=== PATIENT | female | born 1975 | race Caucasian/White ===

== ENCOUNTER 2016-03-15 06:34 | Inpatient (IN) | payer SELFPAY ==
--- NOTE | 2016-03-14 11:38 | Anesthesia Consultation ---
Anesthesia Consult and Med Hx Date of service: 03/18/16 - Airway Anesthetic Teeth Evaluation: Good ROM Head & Neck: Adequate Mental/Hyoid Distance: Adequate Mallampati Class: Class II Intubation Access Assessment: Probably Good - Pulmonary Exam CTA: Yes - Cardiac Exam Cardiac Exam: RRR - Pre-Operative Health Status ASA Pre-Surgery Classification: ASA1 Proposed Anesthetic Plan: General - Central Nervous System Hx Psychiatric Problems: No - Gastrointestinal Hx Gastroesophageal Reflux Disease: No - Other Systems Hx Alcohol Use: No Hx Cancer: No - Additional Comments Anesthesia Medical History Comments: healthy, H/O gestational diabetes
[2016-03-14 11:41] LABS: Hematocrit 40.7 % (30.3-42.9); Hemoglobin 13.8 gm/dl (10.1-14.3); Mean Corpuscular HGB Conc 34 % (30-34); Mean Corpuscular Hemoglobin 30 pg (28-32); Mean Corpuscular Volume 87 fl (79-97); Platelet Count 204 K/mm3 (140-440); Red Blood Count 4.69 M/mm3 (3.65-5.03); Red Cell Distribution Width 13.6 % (13.2-15.2); White Blood Count 4.4 K/mm3 (4.5-11.0)
[~2016-03-15 06:34] MED LIST: LACTATED RINGERS 1,000 ML IV SCH; PEPCID PO NR; VERSED IV NR
[2016-03-15] MEDS ORDERED: PEPCID PO NR (08:00)
--- NOTE | 2016-03-15 09:02 | Admit Criteria Form ---
Admission Criteria Documentation: AMBULATORY SURGERY EXCEPTION CRITERIA Ambulatory Surgery Exception Criteria ( Place 'X' for any and all applicable criteria): Surgery or procedure performed on ambulatory basis may require inpatient stay for[A] ANY ONE of the following(1)(2)(3)(4)(5)(6)(7)(8)(9): [X] I. A preoperative situation, condition, or finding that warrants inpatient stay as indicated by ANY ONE of the following: [] a) Inpatient care needed because of severity of a disease or condition rather than the surgery (eg, severe cardiac or respiratory disease, severe infection) (15) (16 ) (17) (18) [] b) Emergent procedure (eg, angioplasty for acute ischemia)(19) [X] c) Complex surgical approach or situation as indicated by ANY ONE of the following(3): [X] i) Open approach needed instead of usual endoscopic, transcatheter, or other less invasive procedure [] ii) Difficult approach because of previous operation [] iii) Airway monitoring required after open neck procedures(20)(21) [] iv) Large mass requiring unusually extensive dissection [] v) Additional complicating feature requiring inpatient care (eg, drain management)(22(23): [] d) Major surgery in a pt with high anesthetic risk as indicated by ANY ONE of the following (2)(3)(5)(7)(8): [] i) ASA risk class III or higher (severe systemic disease impairing function) [D] [] ii) Advanced age (eg, older than 85 years)(14)(24) [] iii) Symptomatic heart failure(25) [] iv) Symptomatic asthma or COPD(8)(21) [] v) Morbid obesity with hemodynamic or respiratory problems(20)( 21)(26)(27) [] vi) Obstructive sleep apnea(20)(21) [] vii) Former premature infants who are younger than 60 weeks [] viii) High risk for severe postoperative abnormalities (eg, severe postoperative hypocalcemia after parathyroidectomy for severe hyperparathyroidism)(27)( 28) [] ix) Unstable angina(25) [] e) Drug-related risk requiring inpatient stay as indicated by ANY ONE of the following(5)(10)(14)(32)(33) [] i) Procedure requires discontinuing drugs or other therapy (eg , antiarrhythmic medication, antiseizure medication), which necessitates inpatient observation or treatment.(18)(31) [] ii) Major surgery and high risk drug use as indicated by ANY ONE of the following: [] 1) Active abuse of cocaine or similar drug [] 2) Monoamine oxidase inhibitor use [] 3) Other drug identified as posing risk [] f) Inadequate outpatient care situation as indicated by ANY ONE of the following(5)(10)(14)(32)(33) [] i) Patient lives remote from medical facility and procedure has urgent complication potential, and temporary nearby residence cannot be arranged [] ii) Patient will have postprocedure incapacitation and inadequate assistance at home, or alternative level of care cannot be arranged. [] iii) Patient will have long general anesthesia or procedure side effect resolution time, and competent person to stay with patient on first postoperative night at home or alternative level of care cannot be arranged. []iv) Other inadequate outpatient situation that cannot be handled by other means [] II. A perioperative event, condition, or finding that warrants inpatient stay as indicated by ANY ONE of the following (1)(2)(3): [] a) Inadequate physiologic recovery: cardiovascular, respiratory, or hemodynamic status not normal or near preoperative baseline(18) [] b) Hemodynamic instability [] c) Patient not alert with near normal or baseline mental status [] d) Temperature not normal or as expected and not appropriate for outpatient treatment of condition [] e) Ambulatory or appropriate activity level status not yet achieved post procedure [E](34)(35)(36) [] f) Operative site not appropriate (eg, unexpected or excessive drainage or bleeding) [] g) Postoperative effects not resolved or adequately managed (eg, significant pain or vomiting not appropriate for outpatient or next level of care)(10)(12) [] h) Complicating features requiring inpatient care as indicated by ANY ONE of the following(37): [] i) Severe complications of procedure (eg, bowel injury, airway compromise, vascular injury,severe hemorrhage) [] ii) Extensive (eg, dissection far beyond usual scope of procedure ) or prolonged (eg, 120 minutes beyond usual) surgery needed requiring inpatient postoperative care [] iii) Conversion to an open or complex procedure that requires inpatient care (eg, open vs laparoscopic cholecystectomy, abdominal vs vaginal hysterectomy)(38) [] iv) Comorbid condition or test result identified during or post procedure that requires inpatient care (7) [] v) Malignant hyperthermia(30) [] vi) Other complicating feature requiring inpatient care(22)(23) Inpatient stay may be needed until ALL of the following are present (1)(2)(3)(4) (5)(6)(10)(14)(33)(40): []a) Physiologic recovery: cardiovascular, respiratory, and hemodynamic status normal or near preoperative baseline []b) Hemodynamic stability []c) Patient alert, with near normal or baseline mental status []d) Temperature appropriate: patient afebrile or temperature appropriate for outpt treatment of condition []e) Activity level appropriate: ambulatory or appropriate activity level post procedure []f) Operative site appropriate as indicated by ALL of the following: []i) Site dry or with expected drainage []ii) Any blood noted is as expected for procedure. []g) Postoperative effects resolved or managed as indicated by ALL of the following: []i) Pain management appropriate for outpatient (or next level of) care(10) []ii) Minimal nausea and vomiting: if present, successfully treated with oral medication(12) []iii) Headache, dizziness, or drowsiness (if present) are mild. []h) Voiding status acceptable as indicated by ANY ONE of the following: []i) Voiding spontaneously []ii) No voiding but instructions given for follow-up in 6 to 8 hours []iii) Urinary catheter in place, and instructions given for follow-up []i) Complicating features requiring inpatient care manageable at a lower level of care(37) []j) Comorbid conditions manageable at a lower level of care(37) The original [employer] content created by [employer] has been revised. The portions of the content which have been revised are identified through the use of italic text or in bold, and [facility] [employer] has neither reviewed nor approved the modified material. All other unmodified content is copyright [employer]. Please see references footnoted in the original [employer] edition 2016 Admission Criteria Met: Yes
--- NOTE | 2016-03-15 11:41 | Short Stay Summary ---
Short Stay Documentation Date of service: 03/15/16 Narrative H&P: C/O: Abnormal uterine bleeding/HMB-L 40-year-old presents with the above complaints and issues. He has had heavy and painful cycles and her section on 07/03/2015. He had a transvaginal ultrasound which showed a 20 week size fibroid uterus. Desires hysterectomy She has normal Pap smears and a negative EMB Gynhx:As above Regular Pap smears Medhx:None (Hx of GDM but no f/u 3 hr GTT) Sughx: C-S # 1 in 2015 All:NKDA On exam, she has an obvious mildly tender, ~ 20 weeks' size uterus which is mobile A: AUB/HMB-L P: -Discussed risks of surgery in detail, we reviewed risk to the rounding organs and structures especially the urinary system. Her questions were answered and she signed consent. -Proceed to the OR for total abdominal hysterectomy with bilateral salpingectomy once available - History Past Medical History: No medical history Past Surgical History: Social history: , full code, no smoking, no alcohol abuse, no prescription drug abuse, no IV drug use - Allergies and Medications Current Medications: Allergies No Known Allergies Allergy (Unverified 03/11/16 08:21) Home Medications Medication Instructions Recorded Confirmed Last Taken Type No Known Home Medications [No 03/11/16 03/11/16 Unknown History Reported Home Medications] Active Medications Famotidine (Pepcid) 20 mg PO PREOP NR Stop: 03/15/16 23:59 Lactated Ringer's (Lactated Ringers) 1,000 mls @ 100 mls/hr IV DIRECT EVANGELISTA Midazolam HCl (Versed) 2 mg IV PREOP NR Stop: 03/15/16 23:59 - Physical exam General appearance: no acute distress, well-nourished, obese HEENT: Atraumatic Lungs: Clear to auscultation Heart: Regular rate, Normal S1, Normal S2 Gastrointestinal: normal, no tenderness, no distended, masses (Fibroid uterus), no guarding, no organomegaly, obese Female Genitourinary: normal Extremities: no ischemia Neurological: Normal speech
[2016-03-15] MEDS ORDERED: NACL 0.9% 500 ML 500 ML IV ONE (11:42)
[2016-03-15] MEDS ORDERED: NACL BACTERIOSTATIC INFILTRATI ONE (11:43)
[2016-03-15] MEDS ORDERED: ANCEF/STERILE WATER 2 GM/20 ML 20 ML IV SCH (12:00)
[2016-03-15] MEDS: VERSED IV NR ×2 (12:10→13:22)
[2016-03-15 12:39] LABS: Anion Gap 18 mmol/L; Blood Urea Nitrogen 9 mg/dL (7-17); Calcium 8.8 mg/dL (8.4-10.2); Carbon Dioxide 24 mmol/L (22-30); Chloride 104.1 mmol/L (98-107); Glucose 89 mg/dL (65-100); Sodium 142 mmol/L (137-145)
[2016-03-15 12:40] LABS: Potassium 4.5 mmol/L (3.6-5.0)
[2016-03-15] MEDS ORDERED: DIPRIVAN 10 MG/ML IV ONE (13:23)
[2016-03-15] MEDS ORDERED: DILAUDID ONE ×2 (13:24→15:54)
[2016-03-15] MEDS ORDERED: ZEMURON IV ONE (13:25)
[2016-03-15] MEDS ORDERED: ROBINUL ONE ×2 (13:28→14:50)
[2016-03-15] MEDS ORDERED: XYLOCAINE MPF 2% ONE (13:28)
[2016-03-15] MEDS ORDERED: BLOXIVERZ ONE (13:29)
[2016-03-15] MEDS ORDERED: DECADRON ONE (13:30)
[2016-03-15] MEDS ORDERED: ZOFRAN ONE (13:30)
[2016-03-15] MEDS ORDERED: NACL 0.9% IR ONE (14:15)
[2016-03-15] MEDS ORDERED: ACD-A IV ONE (14:15)
[2016-03-15] MEDS ORDERED: LACTATED RINGERS 1,000 ML ONE (14:17)
[2016-03-15] MEDS ORDERED: ANCEF ONE (14:20)
[2016-03-15] MEDS ORDERED: NACL 0.9% 1000 ML 1,000 ML ONE (14:56)
[2016-03-15] MEDS ORDERED: ZOFRAN IV PRN (15:47)
[2016-03-15] MEDS ORDERED: TYLENOL PO PRN (15:47)
[2016-03-15] MEDS ORDERED: NARCAN 0.4 MG/1 ML IV PRN (15:47)
[2016-03-15] MEDS ORDERED: BENADRYL IV PRN (15:47)
[2016-03-15] MEDS ORDERED: PHENERGAN PR PRN (15:47)
--- NOTE | 2016-03-15 15:47 | Operative Report ---
Operative Report Operative Report: DATE: 03/15/2016 PREOPERATIVE DIAGNOSIS: Abnormal uterine bleeding/heavy menstrual bleeding- fibroids, obesity POSTOP DIAGNOSIS: Same NAME OF PROCEDURE: Total abdominal hysterectomy with bilateral salpingectomy SURGEON: NATE RANDLE MD MANAGEMENT SUPERVISOR: DONOVAN BALTAZAR ANESTHESIA: General Endotracheal EBL: 250 mL (125 ml returned by cell saver) PATHOLOGY SPECIMEN: Uterus cervix and tubes URINE OUTPUT: 300 mL FINDINGS: Bulky ~ 20 week size uterus DESCRIPTION OF PROCEDURE: She was taken to the operating room where she was prepped and draped in a sterile fashion, she was placed in the dorsal supine position. Pfannenstiel incision was performed through her prior incisional scar which was carried through to underlying rectus fascia which was on the midline. The fascial incision was extended laterally with use of Keita scissors , the anterior leaf was then grasped with Kochers forceps elevated dissected sharply and bluntly off the underlying rectus in a similar fashion inferior leaf was grasped elevated dissected sharply and bluntly off the underlying rectus. The rectus was in the midline, good visualization of bladder was noted. O'Richardson retractor was placed in the patient's abdomen and the bowel was packed away. Uterus was mobile and was elevated out of the pelvis, using handheld LigaSure, the utero-ovarian broad and cardinal ligaments were sequentially grasped and cauterized and transected both sides. The fundus of the uterus was then amputated off the cervix using Heather scissors. Using straight Faisal's, we serially grasped the cardinal ligaments and then the uterosacral ligaments were then transected and suture ligated. Curved Heaneys were then used to clamp around the cervix and then using Heather scissors the cervix was amputated and delivered from the operating field. Interrupted figure of 8 stitches were used to close the vaginal cuff. 3-0 Vicryl on a running stitch was then used to obtain hemostasis in the vaginal cuff. Irrigation was then used to cut the gutters of all clots and debris, no bleeding noted. Tercel hemostatic agent was then applied to the hysterotomy incision as a means to prevent future bleeding, Interceed was then applied into the pelvic cavity as a means to prevent future adhesions. Peritoneal edges were grasped with hemostats and Margarita's and elevated. The peritoneal layer was then closed in a running fashion with 3-0 Vicryl and the rectus was reapproximated with a single [id number] stitch. The fascia was closed in a running fashion with 0 Vicryl and tied in the opposite side. The subcutaneous layer was irrigated and then reapproximated with interrupted [id number] stitches. The skin was closed in a subcuticular manner with 4-0 Vicryl. She tolerated the procedure well lap and instrument counts were correct 2 she did receive 3 g of Ancef prior to incision she is transferred to PACU in stable condition thank you.
[2016-03-15] MEDS ORDERED: D5LR 1,000 ML IV SCH (16:00)
[2016-03-15] MEDS ORDERED: MORPHINE PCA 30MG/30ML IV SCH (16:00)
[2016-03-15] MEDS ORDERED: NACL 0.9% 1000 ML 1,000 ML IV SCH (16:00)
[2016-03-15] MEDS ORDERED: TORADOL IV PRN ×2 (16:25→17:00)
[2016-03-15] MEDS: ZOFRAN IV PRN (19:13)
--- NOTE | 2016-03-15 19:30 | Post Anesthesia Evaluation ---
- Post Anesthesia Evaluation Patient Participated: Yes Airway Patent: Yes Stable Respiratory Function: Yes Nausea/Vomiting: No Temp > 96.8F: Yes Pain Manageable: Yes Adequeate Hydration: Yes Anesthesia Complications: No Block Receding Appropriately: Not Applicable Patient on Ventilator: No
[2016-03-15] MEDS: COLACE PO SCH (21:00)
[2016-03-15] MEDS ORDERED: TORADOL IV ONE (21:51)
[2016-03-15] MEDS: NORMODYNE PO SCH (22:02)
[2016-03-15] MEDS: MYLICON PO PRN (22:02)
[2016-03-16 06:08] LABS: Hematocrit 38.5 % (30.3-42.9); Hemoglobin 13.3 gm/dl (10.1-14.3)
[2016-03-16] MEDS: PERCOCET 5/325 PO PRN ×3 (06:30→18:09)
--- NOTE | 2016-03-16 06:44 | Progress Note ---
Assessment and Plan POD # 1 s/p ZAYRA -Doing well P: -Remove dressing tomorrow -Continue routine Post-op care -Anticipate D/C in 24-48 hrs - Patient Problems (1) S/P ZAYRA (total abdominal hysterectomy) Current Visit: Yes Status: Acute Subjective - Subjective Date of service: 03/16/16 Principal diagnosis: POD # 1 s/p ZAYRA Interval history: Patient seen and examined, stable doing well. Still has Sammie-incisional pain, no fever or chills, no CVA tenderness adequate Bowel bladder function Patient reports: appetite normal, voiding normally, no dizzy ambulation Objective - Vital Signs Latest vital signs: Vital Signs Temp Pulse Pulse Resp BP BP Pulse Ox 03/16/16 06:01 22 03/16/16 04:15 98.6 F 72 22 117/63 03/16/16 03:40 18 03/16/16 01:57 18 03/15/16 23:45 15 03/15/16 23:10 98.6 F 101 H 20 141/83 03/15/16 22:02 80 148/86 03/15/16 20:00 98.6 F 67 22 154/80 03/15/16 19:05 18 03/15/16 18:10 98.0 F 90 16 151/91 03/15/16 17:50 98.0 F 90 16 151/91 03/15/16 17:32 98.2 F 71 13 146/79 100 03/15/16 17:15 74 17 154/86 100 03/15/16 17:00 87 12 162/86 100 03/15/16 16:50 22 03/15/16 16:38 98.4 F 63 18 166/80 100 03/15/16 16:23 71 15 162/81 100 03/15/16 16:16 12 03/15/16 16:06 67 14 132/42 100 03/15/16 16:01 65 15 163/79 100 03/15/16 15:55 61 13 150/76 100 03/15/16 15:53 98.7 F 69 16 157/94 100 03/15/16 12:27 66 F L 66 16 115/42 97 03/15/16 11:25 98.7 F 66 16 115/42 97 Intake and Output 03/15/16 03/15/16 03/16/16 14:59 22:59 06:59 Intake Total 750 850 945 Output Total 700 1700 Balance 750 150 -755 Intake: IV 750 850 945 D5lr 1,000 ml @ 125 mls/ 500 945 hr IV DIRECT EVANGELISTA Rx#: [id number] Output: Urine 700 1700 Uretheral (Tejeda) 200 Indwelling Catheter 1700 Other: Total, Output Amount 100 Voiding Method Toilet Indwelling Catheter - Exam Lungs: Present: Clear to auscultation Abdomen: Present: normal appearance, soft, tenderness (Appropriate sammie- incisional tenderness), normal bowel sounds. Absent: distention, guarding, rigidity Extremities: Present: normal Incision: Present: intact, dressed - Labs Labs: Abnormal lab results 03/14/16 03/15/16 Range/Units 10:55 11:50 Creatinine 0.3 L (0.7-1.2) mg/dL Crossmatch See Detail
[2016-03-16] MEDS: MYLICON PO PRN ×2 (08:03→22:02)
[2016-03-16] MEDS ORDERED: FLUARIX QUAD 2016-2017(36 MOS+) IM ONE (12:00)
[2016-03-16] MEDS: ZOFRAN IV PRN (12:20)
[2016-03-16] MEDS: COLACE PO SCH ×2 (12:40→22:02)
[2016-03-16] MEDS: MOTRIN PO SCH ×3 (15:31→19:35)
[2016-03-16] MEDS: NORMODYNE PO SCH ×2 (17:13→22:02)
[2016-03-16] MEDS: PYRIDIUM PO SCH (17:14)
[2016-03-16 18:14] LABS: Bilirubin,Urine NEG (Negative); Blood,Urine MOD (Negative); Ketones,Urine NEG (Negative); Leukocyte Esterase,Urine NEG (Negative); Nitrite,Urine NEG (Negative); Protein,Urine <15 mg/dL mg/dL (Negative); Urobilinogen,Urine < 2.0 mg/dL (<2.0); WBC,Urine < 1.0 /HPF (0.0-6.0)
[2016-03-17] MEDS: PERCOCET 5/325 PO PRN ×4 (01:15→22:24)
[2016-03-17] MEDS: MOTRIN PO SCH ×3 (01:16→22:23)
[2016-03-17] MEDS: PYRIDIUM PO SCH ×3 (01:17→18:36)
[2016-03-17] MEDS ORDERED: MILK OF MAGNESIA ONE (09:21)
[2016-03-17] MEDS: NORMODYNE PO SCH ×2 (09:21→22:20)
--- NOTE | 2016-03-17 09:30 | Progress Note ---
Assessment and Plan - Patient Problems (1) S/P ZAYRA (total abdominal hysterectomy) Diagnosis Date: 03/17/16 Current Visit: Yes Status: Acute Plan to address problem: A: S/P ZAYRA - POD #2 Doing well P: Continue with RPOC Encourage ambulation Advance diet as tolerated Anticipate discharge in 24hrs Subjective - Subjective Date of service: 03/17/16 Principal diagnosis: POD # 2 s/p ZAYRA Interval history: Pt is complaining of abdominal/incisional pains. Tolerating a liquid diet without nausea or vomiting. No flatus yet. Not ambulating well. Patient reports: appetite normal, voiding normally, pain poorly controlled, no flatus, no bowel movement, no nauseated Objective - Vital Signs Latest vital signs: Vital Signs Temp Pulse Pulse Pulse Resp BP BP 03/17/16 08:24 97.7 F 74 18 100/66 03/17/16 08:00 68 18 03/17/16 04:35 98.3 F 73 18 99/56 03/17/16 01:16 16 03/17/16 01:15 16 03/17/16 00:00 99.4 F 74 18 108/62 03/16/16 22:02 80 132/80 03/16/16 20:05 99.5 F 70 20 134/71 03/16/16 16:00 98.9 F 70 18 129/63 03/16/16 12:39 97.6 F 76 16 128/80 Intake and Output 03/16/16 03/17/16 03/17/16 22:59 06:59 14:59 Intake Total 960 100 Output Total 1550 1100 300 Balance -590 -1000 -300 Intake: Oral 960 100 Output: Urine 1550 1100 300 Void 1550 1100 300 Other: Total, Intake Amount 240 100 Total, Output Amount 600 600 300 Voiding Method Toilet - Exam Breasts: Present: deferred Cardiovascular: Present: Regular rate Lungs: Present: Clear to auscultation Abdomen: Present: normal appearance, soft Extremities: Present: normal Incision: Present: normal, dry, intact, dressed - Labs Labs: Abnormal lab results 03/16/16 Range/Units 15:36 Creatinine 0.5 L D (0.7-1.2) mg/dL Laboratory Tests 03/14/16 03/14/16 03/14/16 10:55 10:55 10:55 WBC 4.4 L RBC 4.69 Hgb 13.8 Hct 40.7 MCV 87 MCH 30 MCHC 34 RDW 13.6 Plt Count 204 Sodium Potassium Chloride Carbon Dioxide Anion Gap BUN Creatinine Estimated GFR BUN/Creatinine Ratio Glucose POC Glucose Calcium HCG, Qual Negative Urine Color Urine Turbidity Urine pH Ur Specific [place]arc[place] Urine Protein Urine Glucose (UA) Urine Ketones Urine Blood Urine Nitrite Urine Bilirubin Urine Urobilinogen Ur Leukocyte Esterase Urine WBC (Auto) Urine RBC (Auto) U Epithel Cells (Auto) Blood Type A POSITIVE Antibody Screen Negative Crossmatch See Detail 03/15/16 03/15/16 03/16/16 11:50 16:58 05:57 WBC RBC Hgb 13.3 Hct 38.5 MCV MCH MCHC RDW Plt Count Sodium 142 Potassium 4.5 Chloride 104.1 Carbon Dioxide 24 Anion Gap 18 BUN 9 Creatinine 0.3 L Estimated GFR > 60 BUN/Creatinine Ratio 30.00 Glucose 89 POC Glucose 135 H Calcium 8.8 HCG, Qual Urine Color Urine Turbidity Urine pH Ur Specific [place] Urine Protein Urine Glucose (UA) Urine Ketones Urine Blood Urine Nitrite Urine Bilirubin Urine Urobilinogen Ur Leukocyte Esterase Urine WBC (Auto) Urine RBC (Auto) U Epithel Cells (Auto) Blood Type Antibody Screen Crossmatch 03/16/16 03/16/16 03/16/16 15:36 15:36 17:00 WBC RBC Hgb Hct MCV MCH MCHC RDW Plt Count Sodium Potassium Chloride Carbon Dioxide Anion Gap BUN 7 Creatinine 0.5 L D Estimated GFR > 60 BUN/Creatinine Ratio Glucose POC Glucose Calcium HCG, Qual Urine Color Straw Urine Turbidity Clear Urine pH 7.0 Ur Specific Harcourt 1.003 Urine Protein <15 mg/dl Urine Glucose (UA) Neg Urine Ketones Neg Urine Blood Mod Urine Nitrite Neg Urine Bilirubin Neg Urine Urobilinogen < 2.0 Ur Leukocyte Esterase Neg Urine WBC (Auto) < 1.0 Urine RBC (Auto) 0.0 U Epithel Cells (Auto) < 1.0 Blood Type Antibody Screen Crossmatch
[2016-03-17] MEDS: COLACE PO SCH ×2 (10:38→22:21)
[2016-03-17] MEDS: MYLICON PO PRN (18:37)
[2016-03-17] MEDS: ZOFRAN IV PRN (23:05)
[2016-03-18] MEDS: PYRIDIUM PO SCH (00:53)
[2016-03-18] MEDS: MYLICON PO PRN (00:53)
[2016-03-18] MEDS: MOTRIN PO SCH (05:17)
--- NOTE | 2016-03-18 07:41 | Progress Note ---
Assessment and Plan POD # 3 s/p ZAYRA -Doing well P: -Discharge home -Follow up in clinic in 2 weeks - Patient Problems (1) S/P ZAYRA (total abdominal hysterectomy) Diagnosis Date: 03/17/16 Current Visit: Yes Status: Acute Subjective - Subjective Date of service: 03/18/16 Principal diagnosis: POD # 3 s/p ZAYRA Interval history: Patient seen and examined, stable doing well. Ambulating without difficulty, adequate bowel bladder function. Pain well-controlled Patient reports: appetite normal, voiding normally, pain well controlled, flatus , ambulating normally, no dizzy ambulation Objective - Vital Signs Latest vital signs: Vital Signs Temp Pulse Pulse Pulse Resp BP BP 03/18/16 05:17 18 03/18/16 04:10 97.7 F 75 16 112/66 03/18/16 00:05 98.2 F 76 16 104/60 03/17/16 22:24 18 03/17/16 22:23 18 03/17/16 22:20 82 127/72 03/17/16 20:14 98.5 F 66 18 109/53 03/17/16 16:51 98.1 F 72 22 104/82 03/17/16 11:59 98.3 F 76 20 114/70 03/17/16 09:21 110/70 03/17/16 08:24 97.7 F 74 18 03/17/16 08:00 68 18 BP 03/18/16 05:17 03/18/16 04:10 03/18/16 00:05 03/17/16 22:24 03/17/16 22:23 03/17/16 22:20 03/17/16 20:14 03/17/16 16:51 03/17/16 11:59 03/17/16 09:21 03/17/16 08:24 100/66 03/17/16 08:00 Intake and Output 03/17/16 03/18/16 03/18/16 22:59 06:59 14:59 Intake Total 240 Output Total 600 Balance -360 Intake: Oral 240 Output: Urine 600 Void 600 Other: Total, Intake Amount 240 Total, Output Amount 600 Voiding Method Toilet - Exam Abdomen: Present: normal appearance, soft. Absent: distention, tenderness, guarding, rigidity Extremities: Present: normal - Labs Labs: Abnormal lab results 03/14/16 Range/Units 10:55 Crossmatch See Detail
--- NOTE | 2016-03-18 07:46 | Discharge Summary ---
Providers - Providers Date of Admission: 03/15/16 10:49 Date of discharge: 03/18/16 Attending physician: NATE RANDLE Primary care physician: SUBSTANCE ADDICTION COORDINATOR Hospitalization Reason for admission: other (Abnormal uterine bleeding for hysterectomy) Procedure: other (Total abdominal hysterectomy) Incision: dry, intact Discharge diagnosis: IUP at term delivered, other (s/p ZAYRA) Hospital course: Uncomplicated postoperative course, she is discharged home in stable condition Condition at discharge: Poor Disposition: DISCHARGED TO HOME OR SELFCARE - Discharge Diagnoses (1) S/P ZAYRA (total abdominal hysterectomy) Status: Acute Plan - Discharge Medications Prescriptions: Ibuprofen [Motrin 600 MG tab] 600 mg PO Q6H PRN #30 tablet PRN Reason: Pain Multivitamin with Iron [Multivitamins with Iron] 1 each PO DAILY #30 tablet oxyCODONE /ACETAMINOPHEN [Percocet 5/325] 1 tab PO Q6HR PRN #30 tablet PRN Reason: Pain - Provider Discharge Summary Activity: no sex for 6 weeks, no heavy lifting 4 weeks, no strenuous exercise Diet: routine Additional instructions: [] Smoking cessation referral if applicable(refer to patient education folder for contact #) [] Refer to [facility] Booklet Call your doctor immediately for: * Fever > 100.5 * Heavy vaginal bleeding ( >1 pad per hour) * Severe persistent headache * Shortness of breath * Reddened, hot, painful area to leg or breast * Drainage or odor from incision. * Keep incision clean and dry at all times and follow doctor's instructions regarding bathing/showering - Follow up plan Follow up: NATE RANDLE MD [Staff Physician] - 14 Days
[2016-03-18 08:47] VITALS: BP 118/61
== END 2016-03-18 09:45 | disposition home or self-care (01) | DRG 743 ==
LOC: 3A 10:49 → OB 17:08
PROVIDERS: ADMIT Obstetrics & Gynecology Gynecology; ATTEND Obstetrics & Gynecology Gynecology
PROC: 0UT90ZZ Resection of Uterus, Open Approach (ICD-10-PCS; principal; 2016-03-15)
PROC: 0UTC0ZZ Resection of Cervix, Open Approach (ICD-10-PCS; 2016-03-15)
PROC: 0UB70ZZ Excision of Bilateral Fallopian Tubes, Open Approach (ICD-10-PCS; 2016-03-15)
DX: N93.9 Abnormal uterine and vaginal bleeding, unspecified (principal)
CPT/HCPCS: 36415; 80048; 81001; 82565; 82962; 84520; 84703; 85014; 85018; 85027; 86850; 86900; 86901; 86920; 88305; 88307; 90686; C1765; C9250; J0690; J1100; J1170; J1885; J2250; J2270; J2405; J2704; J2710; J7030; J7120; J7121